=== PATIENT | male | born 1990 | race Two or more races ===

== ENCOUNTER 2019-03-23 18:12 | Inpatient (IN) | payer MEDICAID ==
[~2019-03-23] VITALS: Ht 175.3 cm; Wt 66.7 kg
[2019-03-23] MEDS ORDERED: MORPHINE SULFATE INJ 2 MG/ML DISP.SYRIN IV ONE (18:30)
[2019-03-23] MEDS ORDERED: ONDANSETRON HCL/PF 4 MG/2 ML VIAL IVP ONE (18:30)
[2019-03-23] MEDS ORDERED: IV NS 0.9% 1,000 ML BAG IV ONE (18:30)
[2019-03-23 18:48] LABS: BASOPHILS % (AUTO) 0.8 % (0.0-2.0); EOSINOPHILS % (AUTO) 2.9 % (0.0-6.0); HEMATOCRIT 39 % (39-51); HEMOGLOBIN 13.6 g/dL (13.5-17.5); LYMPHOCYTES # (AUTO) 1.7 /CMM (0.8-4.8); MEAN CORPUSCULAR HGB CONC 34 g/dl (31.0-36.0); MEAN CORPUSCULAR VOLUME 87 fL (80-96); MONOCYTES # (AUTO) 0.4 /CMM (0.1-1.30); MONOCYTES % (AUTO) 6.8 % (2.0-12.0); NEUTROPHILS # (AUTO) 3.8 /CMM (1.8-8.9); NEUTROPHILS % (AUTO) 61.5 % (43.0-81.0); PLATELET COUNT (AUTO) 244 /CMM (150-450); RED BLOOD CELL COUNT(AUTO) 4.55 MIL/uL (4.5-6.0); WHITE BLOOD COUNT (AUTO) 6.2 K/uL (4.3-11.0)
--- NOTE | 2019-03-23 18:51 | NUR ---
pr rec'd to er c/o back pain 03/01 pt stated fell 6 days ago 12 feet off a ladder . went to [facility] they did no xrays . pt was unable to urinate they cath him . sent him home today he has back pain and numbess in [place] area iv started 20g left ac labs drawn sent to lab
[2019-03-23] MEDS ORDERED: ONDANSETRON HCL/PF 4 MG/2 ML VIAL ONE (18:54)
--- NOTE | 2019-03-23 18:58 | NUR ---
pt hold on morphine until ct
[2019-03-23 19:05] LABS: ALBUMIN 3.9 g/dL (3.4-5.0); BILIRUBIN,DIRECT 0.2 mg/dL (0.0-0.2); CALCIUM, SERUM 9.2 mg/dL (8.5-10.1); CREATININE 0.8 mg/dL (0.6-1.3); POTASSIUM 4.3 mmol/L (3.5-5.1); TOTAL PROTEIN, SERUM 7.5 g/dL (6.4-8.2)
[2019-03-23] MEDS ORDERED: IOHEXOL-300 100 ML VIAL IV ONE (19:10)
[2019-03-23] MEDS ORDERED: MORPHINE SULFATE INJ 4 MG/ML DISP.SYRIN ONE (19:21)
--- NOTE | 2019-03-23 19:25 | NUR ---
REC'D REPORT FROM ROCIO CARRANZA FOR [facility]
--- NOTE | 2019-03-23 19:25 | NUR ---
PT BROUGHT BY RADIOLOGY FOR CT
--- NOTE | 2019-03-23 19:39 | NUR ---
PT RETURNED FROM CT. RESTING COMFORTABLY IN BED. STILL DENIES MORPHINE AT THIS TIME. WILL CONTINUE TO MONITOR.
--- NOTE | 2019-03-23 19:51 | NUR ---
PT ABLE TO AMBULATE TO RESTROOM WITH STEADY GAIT. URINE COLLECTED AND SENT TO LAB
[2019-03-23 20:32] LABS: APPEARANCE,URINE Cloudy (CLEAR); BILIRUBIN,URINE Negative (NEGATIVE); BLOOD, URINE Negative Ery/uL (NEGATIVE); COLOR,URINE Yellow (YELLOW); KETONES,URINE Negative (NEGATIVE); LEUKOCYTE ESTERASE ,URINE Negative (NEGATIVE); NITRITE, URINE Negative (NEGATIVE); PH,URINE 7.5 (5.0-8.0); PROTEIN,URINE Negative (NEGATIVE); UGLUCOSE Negative (NEGATIVE); UROBILINOGEN,URINE 0.2 EU/dL (0.2)
--- NOTE | 2019-03-23 22:11 | NUR ---
PT RESTING COMFORTABLY IN BED. VITAL SIGNS STABLE. NO ACUTE DISTRESS NOTED AT THIS TIME. FAMILY AT BEDSIDE. WILL CONTINUE TO MONITOR
[2019-03-23] MEDS ORDERED: MAG HYDROX/AL HYDROX/SIMETH 30 ML UDC PO PRN (22:30)
[2019-03-23] MEDS ORDERED: MORPHINE SULFATE INJ 2 MG/ML DISP.SYRIN IV PRN (22:30)
[2019-03-23] MEDS ORDERED: ONDANSETRON HCL/PF 4 MG/2 ML VIAL IVP PRN (22:30)
[2019-03-23] MEDS ORDERED: HYDROCODONE/APAP 5/325MG 1 EACH TABLET PO PRN (22:30)
[2019-03-23] MEDS ORDERED: ZOLPIDEM TARTRATE 5 MG TABLET PO PRN (22:30)
[2019-03-23] MEDS ORDERED: Z GUARD REMEDY 2 OZ OINT TP PRN (22:30)
[2019-03-23] MEDS ORDERED: ACETAMINOPHEN 325 MG TABLET PO PRN (22:30)
--- NOTE | 2019-03-23 23:13 | NUR ---
CALLED [facility] SPOKE WITH [facility], THEY ARE ONLY OPEN FOR PEDIATRICS TRAUMA CASES AT THE MOMENT.
--- NOTE | 2019-03-23 23:52 | NUR ---
GAVE REPORT TO LOU CARRANZA FOR [facility]. BED ASSIGNMENT 306-2
[2019-03-24] VITALS: BP 111/66
[2019-03-24 00:25] VITALS: BP 111/66
--- NOTE | 2019-03-24 00:25 | NUR ---
RN NOTES RECEIVED PT. FROM ER WITH DX. OF FALL AND SACRAL FRACTURE, A/OX4, AMBULATORY, PAIN IS TOLERABLE AT THIS TIME, FAMILY AT BEDSIDE, ADMISSION INSTRUCTION RENDERED, CALL LIGHT WITHIN REACH, [id number], CONTINUE TO MONITOR
[2019-03-24 06:47] LABS: BASOPHILS % (AUTO) 0.8 % (0.0-2.0); EOSINOPHILS % (AUTO) 3.1 % (0.0-6.0); HEMATOCRIT 37 % (39-51); HEMOGLOBIN 12.8 g/dL (13.5-17.5); LYMPHOCYTES # (AUTO) 1.8 /CMM (0.8-4.8); LYMPHOCYTES % (AUTO) 31.9 % (20.0-44.0); MEAN CORPUSCULAR HGB CONC 35 g/dl (31.0-36.0); MEAN CORPUSCULAR VOLUME 86 fL (80-96); MONOCYTES # (AUTO) 0.5 /CMM (0.1-1.30); MONOCYTES % (AUTO) 8.6 % (2.0-12.0); NEUTROPHILS # (AUTO) 3.1 /CMM (1.8-8.9); NEUTROPHILS % (AUTO) 55.6 % (43.0-81.0); PLATELET COUNT (AUTO) 212 /CMM (150-450); RED BLOOD CELL COUNT(AUTO) 4.28 MIL/uL (4.5-6.0); WHITE BLOOD COUNT (AUTO) 5.5 K/uL (4.3-11.0)
--- NOTE | 2019-03-24 07:00 | NUR ---
RN NOTES AWAKE, WENT TO THE TOILET, PAIN IS TOLERABLE, NO SOB, CALL LIGHT WITHIN REACH, SIDERAILS UPX2, PT. NEEDS ATTENDED
[2019-03-24 07:09] LABS: CALCIUM, SERUM 8.7 mg/dL (8.5-10.1); CREATININE 0.7 mg/dL (0.6-1.3); MAGNESIUM 2.1 mg/dL (1.8-2.4)
[2019-03-24 08:00] VITALS: BP 110/48
--- NOTE | 2019-03-24 09:00 | NUR ---
PATIENT PROVIDED EMR (THAT WAS DONE OUT OF HOSPITAL). SENT IT TO RADIOLOGY TO READ AND POST IN THE SYSTEM.
[2019-03-24] MEDS: DOCUSATE SODIUM 100 MG CAPSULE PO SCH ×2 (10:32→17:23)
[2019-03-24] MEDS: MAGNESIUM HYDROXIDE 30 ML UDC PO PRN ×2 (13:15→20:43)
--- NOTE | 2019-03-24 13:20 | NUR ---
PATIENT DENIES PAIN , URINATING WELL. STOOL SOFTENER ADMINISTRATED
[2019-03-24 16:00] VITALS: BP 98/72
--- NOTE | 2019-03-24 19:05 | NUR ---
RN MS OPENING NOTES RECEIVED PATIENT IN BED AWAKE ALERT AND ORIENTED X4, RESPIRATIONS EVEN AND UNLABORED WITH EQUAL RISE AND FALL OF CHEST, STATES PAIN IS 2/10 "LITTLE PAIN" HOWEVER PATIENT DOESN'T NOT WANT PAIN MEDICATION AT THIS TIME. IV SITE TO LEFT AC #20G INTACT AND PATENT, NO REDNESS, NO INFILTRATION PRESENT ,SL. SAFETY PRECAUTIONS IN PLACE, LOW BED AND LOCKED, ORIENTED TO STAFF AND CALL LIGHT AND KEPT WITHIN REACH, FLUIDS AND PRUNE JUICE OFFERED AND ENCOURAGE TO AIDE IN MOVING BOWELS, WILL CONTINUE TO MONITOR, REMAINS COMFORTABLE ALL NEEDS ATTENDED WILL CONTINUE TO MONITOR THROUGHOUT SHIFT.
[2019-03-24 20:00] VITALS: BP 115/69
--- NOTE | 2019-03-24 20:43 | NUR ---
RN MS NOTES PATIENT STATES HAS NOT HAD BM YET REQUESTING FOR M.O.M M.O.M GIVEN PRUNE JUICE GIVEN AND ENCOURAGED HYDRATION.
--- NOTE | 2019-03-24 21:42 | NUR ---
RN MS NOTES SEEN BY MINER OPERATOR STACIE WHOM DISCUSSED PLAN OF CARE WITH PATIENT WITH NURSING STAFF WHOM TRANSLATED. PER STACIE PATIENT IS DISCHARGED SET TO GO IN AM. PATIENT VERBALIZES HE UNDERSTANDS PLAN OF CARE. MADE MINER OPERATOR AWARE M.O.M GIVEN AND UNABLE TO HAVE BOWEL MOVEMENT WITH NEW ORDERS FOR MAGNESIUM CITRATE. PRESCRIPTION WRITTEN BY STACIE AND SAFELY PLACED IN CHART AT THIS TIME FOR D/C IN AM. ALL NEEDS ATTENDED AT THIS TIME, WILL CONTINUE TO MONITOR FOR BOWEL MOVEMENT.
[2019-03-24] MEDS ORDERED: MAGNESIUM CITRATE 296 ML BOTTLE PO ONE (22:00)
--- NOTE | 2019-03-25 07:05 | NUR ---
RN MS CLOSING NOTES PATIENT IN BED AWAKE ALERT AND ORIENTED X4, RESPIRATIONS EVEN AND UNLABORED WITH EQUAL RISE AND FALL OF CHEST, . IV SITE TO LEFT AC #20G INTACT AND PATENT, NO REDNESS, NO INFILTRATION PRESENT ,SL. SAFETY PRECAUTIONS IN PLACE, LOW BED AND LOCKED, CALL LIGHT KEPT WITHIN REACH, FLUIDS AND PRUNE JUICE OFFERED AND ENCOURAGE TO AIDE IN MOVING BOWELS, PATIENT HAD BM WILL CONTINUE TO MONITOR, REMAINS COMFORTABLE ALL NEEDS ATTENDED WILL CONTINUE TO MONITOR AND ENDORSE TO NEXT SHIFT, PATIENT IS SCHEDULED FOR DISCHARGE TODAY.
--- NOTE | 2019-03-25 07:42 | NUR ---
MS RN OPENING NOTES RECEIVED PT LAYING IN BED WITH HOB ELEVATED. PT IS A/OX4, AFEBRILE. RESPIRATIONS ARE EVEN AND UNLABORED, NOT IN ANY ACUTE DISTRESS NOTED. PT DENIES ANY PAIN AT THIS TIME, NO C/O SOB, N/V. LAC G22 INTACT, NO INFILTRATION NOTED, DRESSING KEPT CLEAN AND DRY. SAFETY MEASURES ARE IN PLACE. INSTRUCTED PT TO USE CALL LIGHT WHEN ASSISTANCE IS NEEDED, CALL LIGHT IS LEFT WITHIN REACH. WILL MONITOR THROUGHOUT SHIFT FOR CONTINUITY OF CARE.
[2019-03-25 08:00] VITALS: BP 115/65
--- NOTE | 2019-03-25 08:15 | NUR ---
MS RN NOTES-- CALLED RADIOLOGY TO GIVE MRI CD BACK. AND ORDERED FOR CT IMAGE COPY DISC. BOTH DISCS HANDED TO PT.
[2019-03-25] MEDS: DOCUSATE SODIUM 100 MG CAPSULE PO SCH (08:23)
--- NOTE | 2019-03-25 08:38 | NUR ---
MS RN NOTES-- PT WAS SEEN BY DR. TALAMANTES W/ ORDERS FOR D/C TODAY AND TO FOLLOW UP WITH PCP.
--- NOTE | 2019-03-25 08:50 | NUR ---
MS RN NOTES-- EXPLAINED DISCHARGE PAPERWORK TO PT AND AT BEDSIDE W/ VERBALIZED AND WRITTEN AGREEMENT. INSTRUCTED PT TO SEE PCP SCHEDULED FOR FOLLOW UP.
--- NOTE | 2019-03-25 09:40 | NUR ---
MS SENIOR RESEARCH SCIENTIST NOTE PT DISCHARGED TO HOME IN MEDICALLY STABLE CONDITION. PT IS A/O X4, AFEBRILE. RESPIRATIONS ARE EVEN AND UNLABORED, NOT IN ANY ACUTE DISTRESS NOTED. PUPILS ARE REACTIVE TO LIGHT, BILATERAL HAND MACHINE STRAW HAT PRESSER ARE STRONG AND EQUAL. PT DENIES ANY PAIN AT THIS TIME. PT IS AMBULATORY. DENIES ANY N/V, SOB. ABDOMEN IS SOFT AND NONDISTENDED, BOWEL SOUNDS ARE PRESENT IN ALL 4 QUADRANTS UPON AUSCULTATION, DENIES ANY BLADDER DISCOMFORT. NO SKIN ISSUES NOTED. SKIN IS KEPT CLEAN AND DRY. IV ACCESS REMOVED, APPLIED PRESSURE AND TOLERATED WELL. ID BAND REMOVED. ALL BELONGINGS SENT WITH PT. EXPLAINED DISCHARGE PAPERWORK TO PT AND AT BEDSIDE WITH VERBAL AND WRITTEN AGREEMENT. OFFERED PT WHEELCHAIR TO VEHICLE. PT REFUSED AND SAID "I CAN WALK." ACCOMPANIED PT AND FAMILY TO LOBBY. PT LEFT IN STABLE CONDITION.
== END 2019-03-25 09:40 | disposition home or self-care (01) | DRG 347 ==
LOC: ER 18:16 → MED 03-24 00:03
PROVIDERS: ADMIT Student in an Organized Health Care Education/Training Program; ATTEND Nurse Practitioner Acute Care
DX: S32.10XA Unspecified fracture of sacrum, initial encounter for closed fracture (principal); F17.200 Nicotine dependence, unspecified, uncomplicated; K59.00 Constipation, unspecified; W11.XXXA Fall on and from ladder, initial encounter; Y93.9 Activity, unspecified; Y92.009 Unspecified place in unspecified non-institutional (private) residence as the place of occurrence of the external cause; R33.9 Retention of urine, unspecified
CPT/HCPCS: 36415; 71260-TC; 80048-TC; 80061-TC; 80076-TC; 81000-TC; 83735-TC; 84100-TC; 85025-TC; 85730-TC; 87081-TC; G0378; J2270; J2405; J7030; Q9967